=== PATIENT | male | born 1980 | race Caucasian/White ===

== ENCOUNTER 2019-04-17 00:27 | Emergency (ER) | payer OTHER ==
[~2019-04-17] VITALS: Ht 162.5 cm; Wt 77.1 kg
[~2019-04-17 00:27] MED LIST: DAYPRO600 M1 PO; ROBAXIN750 MG PO
[2019-04-17 00:34] VITALS: BP 124/71
[2019-04-17] MEDS ORDERED: ZOFRAN4 MG PO (02:22)
[2019-04-17] MEDS ORDERED: DOXYCYCLINE100 M3 PO (02:22)
== END 2019-04-17 02:58 | disposition home or self-care (01) ==
LOC: ED 00:27
DX: J10.1 Influenza due to other identified influenza virus with other respiratory manifestations (principal); F17.200 Nicotine dependence, unspecified, uncomplicated

== ENCOUNTER 2019-10-13 08:00 | Emergency (ER) | payer OTHER ==
[~2019-10-13] VITALS: Ht 167.6 cm; Wt 77.6 kg
[~2019-10-13 08:00] MED LIST changes: +DOXYCYCLINE100 M3 PO; +ZOFRAN4 MG PO
[2019-10-13 08:13] VITALS: BP 151/89
[2019-10-13 09:00] LABS: BASO # 0.1 10*3/uL (0.0-0.1); BASO % 0.5 % (0.0-1.0); EOS # 0.2 10*3/uL (0.0-0.4); EOS % 1.9 % (1.0-4.0); HEMATOCRIT 42.5 % (42.0-52.0); LYMPH # 1.6 10*3/uL (1.3-4.4); LYMPH % 16.3 % (27.0-41.0); MEAN CELL VOLUME 88.7 fl (80.0-94.0); MEAN CORPUSCULAR HGB 30.7 pg (27.0-31.0); MEAN CORPUSCULAR HGB CONC 34.6 g/dl (33.0-37.0); MEAN PLATELET VOLUME 9.5 fl (9.6-12.3); MONO # 0.6 10*3/uL (0.1-1.0); MONO % 6.3 % (3.0-9.0); NEUT # 7.2 10*3/uL (2.3-7.9); NEUT % 74.2 % (47.0-73.0); PLATELET COUNT AUTOMATED 283 10*3/uL (130-400); RED BLOOD COUNT 4.79 10*6/uL (4.50-5.90); RED CELL DISTRI WIDTH 12.2 % (0-14.5); WHITE BLOOD COUNT 9.8 10*3/uL (4.8-10.8)
[2019-10-13 09:12] LABS: ACT PARTIAL THROMBO TIME 25.9 SECONDS (20.0-32.1)
[2019-10-13 09:14] LABS: ALBUMIN 3.9 gm/dl (3.1-4.5); ALKALINE PHOSPHATASE 103 U/L (45-117); BUN 13 mg/dl (7-24); CHLORIDE 111 mmol/L (98-107); CREATININE 0.93 mg/dL (0.70-1.30); POTASSIUM 3.3 mmol/L (3.5-5.1); SGOT/AST 26 IU/L (3-35); SGPT/ALT 30 U/L (12-78); SODIUM 138 mmol/L (136-145); TOTAL PROTEIN 7.3 gm/dL (6.4-8.2)
[2019-10-13 09:20] LABS: ETHYL ALCOHOL < 3.0 mg/dl (<3)
== END 2019-10-13 11:55 | disposition short-term general hospital (02) ==
LOC: ED 08:00
PROVIDERS: Emergency Medicine
DX: S02.85XA Fracture of orbit, unspecified, initial encounter for closed fracture (principal); R79.1 Abnormal coagulation profile; F17.200 Nicotine dependence, unspecified, uncomplicated; Y08.89XA Assault by other specified means, initial encounter; Y93.89 Activity, other specified; Y92.89 Other specified places as the place of occurrence of the external cause; Y99.8 Other external cause status

== ENCOUNTER → 2020-01-16 | Outpatient (CLI) | payer OTHER | END | disposition home or self-care (01) | LOC: COVID19 15:38 | PROVIDERS: ATTEND Family Medicine | DX: Z20.828 Contact with and (suspected) exposure to other viral communicable diseases (principal) ==

== ENCOUNTER 2024-02-28 10:07 | Emergency (ER) | payer BC ==
[~2024-02-28] VITALS: Ht 165.1 cm; Wt 81.6 kg
[2024-02-28 10:19] VITALS: BP 142/83
[2024-02-28] MEDS ORDERED: Acetaminophen/Oxycodone 5 MG/325 MG TABLET PO ONE (10:25)
[2024-02-28] MEDS ORDERED: TRAMADOL HCL50 MG PO (12:17)
== END 2024-02-28 12:23 | disposition home or self-care (01) ==
LOC: ED 10:07
DX: M25.532 Pain in left wrist (principal); F90.9 Attention-deficit hyperactivity disorder, unspecified type; Z98.890 Other specified postprocedural states

== ENCOUNTER → 2024-03-02 | Outpatient (CLI) | payer BC ==
[~2024-03-02] MED LIST changes: +TRAMADOL HCL50 MG PO
[2024-03-02 09:42] LABS: BASO # 0.1 10*3/uL (0.0-0.1); BASO % 0.8 % (0.0-1.0); EOS # 0.2 10*3/uL (0.0-0.4); HEMATOCRIT 58.7 % (42.0-52.0); MEAN CELL VOLUME 89.9 fl (80.0-94.0); MEAN CORPUSCULAR HGB 29.7 pg (27.0-31.0); MEAN PLATELET VOLUME 9.3 fl (9.6-12.3); MONO # 0.5 10*3/uL (0.1-1.0); MONO % 8.5 % (3.0-9.0); NEUT # 4.2 10*3/uL (2.3-7.9); NEUT % 66.3 % (47.0-73.0); PLATELET COUNT AUTOMATED 302 10*3/uL (130-400); RED BLOOD COUNT 6.53 10*6/uL (4.50-5.90); RED CELL DISTRI WIDTH 14.1 % (0-14.5); WHITE BLOOD COUNT 6.4 10*3/uL (4.8-10.8)
[2024-03-02 10:04] LABS: URINE AMPHETAMINES Negative (1000ng/ml); URINE BARBITURATES Negative (200ng/ml); URINE BENZODIAZEPINES Negative (200ng/ml); URINE CANNABINOIDS (THC) Negative (50ng/ml); URINE COCAINE Negative (300ng/ml); URINE METHADONE Negative (300ng/ml); URINE OPIATES Negative (300ng/ml); URINE PHENCYCLIDINE Negative (25ng/ml)
[2024-03-02 10:05] LABS: VITAMIN D, 25-HYDROXY 33.2 ng/mL (30-100)
[2024-03-02 10:08] LABS: ALKALINE PHOSPHATASE 55 U/L (46-116); BUN 12 mg/dl (9-23); CHLORIDE 106 mmol/L (98-107); CHOLESTEROL 148 mg/dL (<200); LDL CHOLESTEROL 108 mg/dL (9-159); POTASSIUM 4.3 mmol/L (3.4-5.1); SGPT/ALT 55 U/L (5-49); TOTAL PROTEIN 7.4 gm/dL (6.0-8.0); TRIGLYCERIDES 75 mg/dl (<150)
== END | disposition home or self-care (01) ==
LOC: RESCLI 02:24
PROVIDERS: ATTEND Student in an Organized Health Care Education/Training Program
DX: S83.241A Other tear of medial meniscus, current injury, right knee, initial encounter (principal); Z98.890 Other specified postprocedural states; Z68.29 Body mass index [BMI] 29.0-29.9, adult; Z71.89 Other specified counseling; Z72.0 Tobacco use; Z79.890 Hormone replacement therapy; X58.XXXA Exposure to other specified factors, initial encounter; Y93.89 Activity, other specified; Y92.89 Other specified places as the place of occurrence of the external cause

== ENCOUNTER → 2024-03-16 | Outpatient (CLI) | payer BC | END | disposition home or self-care (01) | LOC: MRI 12:53 | PROVIDERS: ATTEND Student in an Organized Health Care Education/Training Program | DX: S83.242A Other tear of medial meniscus, current injury, left knee, initial encounter (principal); M25.462 Effusion, left knee; R60.0 Localized edema; X58.XXXA Exposure to other specified factors, initial encounter; Y93.89 Activity, other specified; Y92.89 Other specified places as the place of occurrence of the external cause; Y99.8 Other external cause status ==

== ENCOUNTER → 2024-05-24 | Outpatient (CLI) | payer BC | END | disposition home or self-care (01) | LOC: MRI 05-22 09:00 | PROVIDERS: ATTEND Orthopaedic Surgery | DX: S83.242A Other tear of medial meniscus, current injury, left knee, initial encounter (principal); X58.XXXA Exposure to other specified factors, initial encounter; Y93.89 Activity, other specified; Y92.89 Other specified places as the place of occurrence of the external cause; Y99.8 Other external cause status ==

== ENCOUNTER → 2024-06-01 | Outpatient (CLI) | payer OTHER, BC | END | disposition home or self-care (01) | LOC: RAD 11:54 | PROVIDERS: ATTEND Chiropractor Orthopedic | DX: M75.42 Impingement syndrome of left shoulder (principal); M25.512 Pain in left shoulder ==

== ENCOUNTER → 2024-08-02 | Outpatient (CLI) | payer OTHER, BC | END | disposition home or self-care (01) | LOC: MRI 09:47 | PROVIDERS: ATTEND Chiropractor Orthopedic | DX: M19.012 Primary osteoarthritis, left shoulder (principal); M75.42 Impingement syndrome of left shoulder ==

== ENCOUNTER → 2024-12-12 | Day surgery (SDC) | payer OTHER ==
[2024-12-07 12:49] LABS: BUN 12 mg/dl (9-23)
[~2024-12-12] VITALS: Ht 165.1 cm; Wt 88.0 kg
[~2024-12-12] MED LIST changes: +ACETAMINOPHEN 100 ML IV ONE; +Bupivacaine Hydrochloride/Ep2 30 ML VIAL ONE; +Dexamethasone Sodium Phospha 4 MG/ML VIAL IV ONE; +EPINEPHrine/Lidocaine Hydroc 20 ML VIAL ONE; +GLYCOPYRROLATE IN WATER/PF 0.4 MG/2 ML SYRINGE IV ONE; +HYDROCODONE-AC1 EAC1 PO; +Ketamine Hydrochloride 50 MG/5 ML SYRINGE IV ONE; +Lactated Ringer's Solution 1,000 ML IV ONE; +Lidocaine Hydrochloride 2% 5 ML SDV IV ONE; +Midazolam Hydrochloride 2 MG/2 ML VIAL IV ONE; +Ondansetron Hydrochloride 4 MG/2 ML VIAL IV ONE; +PROPOFOL 200 MG/20 ML VIAL IV ONE; +SEVOFLURANE 250 ML BOT INH ONE; +TESTOSTERO30 MG/1.5 TD; +ceFAZolin sodium/sodium chlor 20 ML IV ONE
[2024-12-12 07:08] VITALS: BP 143/80
[2024-12-12 08:30] VITALS: BP 109/37
[2024-12-12 08:45] VITALS: BP 102/46
[2024-12-12 09:00] VITALS: BP 105/54
[2024-12-12 09:15] VITALS: BP 107/55
[2024-12-12 09:45] VITALS: BP 128/53
== END | disposition home or self-care (01) ==
LOC: SDC 12-08 14:00
PROVIDERS: ATTEND Orthopaedic Surgery
DX: M76.52 Patellar tendinitis, left knee (principal); F90.9 Attention-deficit hyperactivity disorder, unspecified type; Z98.890 Other specified postprocedural states; Z87.891 Personal history of nicotine dependence; Z91.030 Bee allergy status